=== PATIENT | male | born 1960 | race African-American/Black ===

== ENCOUNTER 2016-09-21 15:52 | Emergency (ER) | payer OTHER, MEDICARE ==
[~2016-09-21] VITALS: Ht 175.3 cm; Wt 113.4 kg
[~2016-09-21 15:52] MED LIST: DIAZ10TA
[2016-09-21 17:22] LABS: Basophils # (auto) 0 uL; Basophils % (auto) 0.3 % (0.0-2.0); Eosinophils # (auto) 0.2 uL; Eosinophils % (auto) 1.8 % (0.0-7.0); Hematocrit 49.6 % (41.0-53.0); Hemoglobin 16.4 g/dL (13.5-17.5); Lymphocytes # (auto) 1.7 uL; Lymphocytes % (auto) 18.3 % (10.0-50.0); Mean Corpuscular Hgb Conc. 33.1 g/dL (32.0-36.0); Mean Corpuscular Volume 93.6 fL (80.0-100.0); Mean Platelet Volume 7.7 fL (7.4-10.4); Monocytes # (auto) 0.8 uL; Monocytes % (auto) 8.9 % (0.0-12.0); Neutrophils # (auto) 6.7 uL; Neutrophils % (auto) 70.7 % (37.0-80.0); Platelet Count (auto) 302 10^3/uL (140-450); Red Cell Distribution Width 13.9 % (11.6-16.0); White Blood Cell 9.4 10^3/uL (4.4-10.8)
[2016-09-21] MEDS ORDERED: ONDANSETRON HCL 4 MG/2 ML VIAL IV ONE (17:45)
[2016-09-21] MEDS ORDERED: HYDROmorphone HCL 2 MG/ML VL IV ONE (17:45)
[2016-09-21] MEDS ORDERED: SODIUM CHLORIDE 0.9% 1,000 ML IV ONE (17:45)
[2016-09-21 17:48] LABS: Albumin 3.3 g/dL (3.4-5.0); Alkaline Phosphatase 72 U/L (45-117); Amylase 55 U/L (25-115); Anion Gap 8 (5-15); Aspartate Aminotransferase 18 U/L (15-37); Bilirubin, Total 0.2 mg/dL (0.2-1.0); Blood Urea Nitrogen 13 mg/dL (7-18); Calcium 8.6 mg/dL (8.5-10.1); Carbon Dioxide 24 mmol/L (21-32); Chloride 107 mmol/L (98-107); GFR African American 108 mL/min; GFR Non-African American 89 mL/min; Glucose 93 mg/dL (74-106); Magnesium 2.5 mg/dL (1.6-2.6); Potassium 3.9 mmol/L (3.5-5.1); Sodium 139 mmol/L (136-145); Total Protein 6.9 g/dL (6.4-8.2)
[2016-09-21 18:05] LABS: Urine Bilirubin Negative (Negative); Urine Blood Negative /uL (Negative); Urine Color Yellow (Yellow); Urine Glucose Normal (Normal); Urine Ketone Negative (Negative); Urine Nitrite Negative (Negative); Urine RBC <1 /hpf (0 - 3); Urine Urobilinogen Normal (Negative)
[2016-09-21 21:00] VITALS: BP 137/75
== END 2016-09-21 22:30 | disposition home or self-care (01) ==
LOC: EDUNIT# 15:52 → ER 15:52 → EDBD 15:52 → ER 22:30
DX: N28.1 Cyst of kidney, acquired (principal); E78.5 Hyperlipidemia, unspecified; I10 Essential (primary) hypertension; F17.210 Nicotine dependence, cigarettes, uncomplicated; F12.10 Cannabis abuse, uncomplicated; F19.10 Other psychoactive substance abuse, uncomplicated
CPT/HCPCS: 36415; 74176; 80053; 80307; 81001; 82150; 83690; 83735; 84484; 85025; 87040; 93005; 96361; 96374; 96375; 99285; J1170; J2405; J7030

== ENCOUNTER 2018-02-02 06:42 | Emergency (ER) | payer MEDICARE, OTHER ==
[~2018-02-02] VITALS: Ht 172.7 cm; Wt 136.1 kg
[2018-02-02] MEDS ORDERED: CARISOPRODOL 350 MG TAB PO ONE (07:45)
[2018-02-02] MEDS ORDERED: HYDROmorphone HCL 2 MG/ML VL IM ONE (07:45)
[2018-02-02 09:44] VITALS: BP 148/95
== END 2018-02-02 09:47 | disposition home or self-care (01) ==
LOC: EDBD 06:42 → ER 06:42
DX: S33.5XXA Sprain of ligaments of lumbar spine, initial encounter (principal); F17.210 Nicotine dependence, cigarettes, uncomplicated; F12.10 Cannabis abuse, uncomplicated; E78.5 Hyperlipidemia, unspecified; I10 Essential (primary) hypertension; X58.XXXA Exposure to other specified factors, initial encounter; Y93.89 Activity, other specified; Y92.89 Other specified places as the place of occurrence of the external cause; Y99.8 Other external cause status
CPT/HCPCS: 72110; 96372; 99284; J1170

== ENCOUNTER 2021-10-06 11:04 | Emergency (ER) | payer OTHER ==
[~2021-10-06] VITALS: Ht 170.2 cm; Wt 108.9 kg
[2021-10-06] MEDS ORDERED: cloNIDine HCL 0.1 MG TAB PO ONE (11:15)
[2021-10-06] MEDS ORDERED: cloNIDine HCL 0.1 MG TAB ONE (11:18)
[2021-10-06] MEDS ORDERED: HYDROcodone-ACET 7.5/325MG TAB PO ONE (12:15)
[2021-10-06 12:59] VITALS: BP 197/93
== END 2021-10-06 13:34 | disposition home or self-care (01) ==
LOC: ER 11:04
DX: S16.1XXA Strain of muscle, fascia and tendon at neck level, initial encounter (principal); S39.012A Strain of muscle, fascia and tendon of lower back, initial encounter; F17.210 Nicotine dependence, cigarettes, uncomplicated; F12.10 Cannabis abuse, uncomplicated; E11.9 Type 2 diabetes mellitus without complications; I10 Essential (primary) hypertension; E78.5 Hyperlipidemia, unspecified; V43.52XA Car driver injured in collision with other type car in traffic accident, initial encounter; Y93.89 Activity, other specified; Y92.410 Unspecified street and highway as the place of occurrence of the external cause; Y99.8 Other external cause status
CPT/HCPCS: 72040; 72100